=== PATIENT | female | born 1975 | race African-American/Black ===

== ENCOUNTER 2022-03-18 07:16 | Emergency (ER) | payer SELFPAY ==
[~2022-03-18] VITALS: Ht 162.6 cm; Wt 68.0 kg
[2022-03-18] MEDS ORDERED: SODIUM CHLORIDE 0.9% 1,000 ML IV ONE (07:30)
[2022-03-18 07:51] LABS: BASOPHILS % 0.5 % (0.0-2.0); EOSINOPHILS % 0.3 % (0.0-5.0); HEMATOCRIT. 38.8 % (36.0-48.0); LYMPHOCYTES % 35.3 % (20.0-50.0); MEAN CORPUSCULAR HEMOGLOBIN 31.5 pg (28.0-32.0); MEAN CORPUSCULAR VOLUME 93.8 fL (81.0-99.0); MEAN PLATELET VOLUME 8.1 fl (7.4-10.4); MONOCYTES % 7.6 % (2.0-8.0); NEUTROPHILS % 56.3 % (40.0-76.0); PLATELET 193 x1000/uL (130-400); RED BLOOD CELL COUNT 4.13 mill/uL (4.2-5.4); RED CELL DISTRIBUTION WIDTH 13.4 % (11.6-14.6)
[2022-03-18 07:59] LABS: CHLORIDE 100 mEq/L (98-107)
[2022-03-18 08:21] LABS: ETHANOL BLOOD < 10 mg/dL
[2022-03-18 10:06] LABS: CLARITY URINE CLEAR (CLEAR); COLOR URINE YELLOW (YELLOW); KETONES URINE NEGATIVE (NEGATIVE); LEUKOCYTE ESTERASE URINE NEGATIVE (NEGATIVE); NITRITE URINE NEGATIVE (NEGATIVE); OCCULT BLOOD URINE NEGATIVE (NEGATIVE); PROTEIN URINE NEGATIVE (NEGATIVE); SPECIFIC GRAVITY URINE 1.002 (1.005-1.030); UROBILINOGEN URINE 0.2 E.U./dL (0.2-1.0)
[2022-03-18 10:27] LABS: *AMPHETAMINES SCREEN URINE NEGATIVE (NEGATIVE); *BARBITURATES SCREEN URINE NEGATIVE (NEGATIVE); *BENZODIAZEPINES SCREEN URINE NEGATIVE (NEGATIVE); *COCAINE SCREEN URINE NEGATIVE (NEGATIVE); CANNABINOID URINE SCREEN NEGATIVE (NEGATIVE); METHADONE URINE SCREEN NEGATIVE (NEGATIVE); OPIATES URINE SCREEN NEGATIVE (NEGATIVE); PHENCYCLIDINE URINE SCREEN NEGATIVE (NEGATIVE)
[2022-03-18] MEDS ORDERED: CLON0.5T MT (12:04)
[2022-03-18] MEDS ORDERED: PARO-66 MT (12:04)
[2022-03-18 13:06] VITALS: BP 127/84
[2022-03-20] MEDS ORDERED: PARO-66 MT (12:13)
[2022-03-20] MEDS ORDERED: CLON0.5T MT (12:13)
== END 2022-03-18 13:11 | disposition home or self-care (01) ==
LOC: ER 07:16
DX: F41.0 Panic disorder [episodic paroxysmal anxiety] (principal); R51.9 Headache, unspecified
CPT/HCPCS: 36415; 70450; 71045; 80053; 80305; 80307; 80320; 80329; 81003; 82140; 83690; 83880; 84484; 85025; 86850; 86900; 86901; 96360; 96361; 99285; J7030; G0480

== ENCOUNTER 2022-07-28 04:22 | Emergency (ER) | payer OTHER ==
[~2022-07-28] VITALS: Ht 170.2 cm; Wt 87.4 kg
[~2022-07-28 04:22] MED LIST: CLON0.5T MT; PARO-66 MT
[2022-07-28 04:24] VITALS: BP 133/89
[2022-07-28 04:57] LABS: CLARITY URINE CLEAR (CLEAR); COLOR URINE YELLOW (YELLOW); KETONES URINE NEGATIVE (NEGATIVE); LEUKOCYTE ESTERASE URINE NEGATIVE (NEGATIVE); NITRITE URINE NEGATIVE (NEGATIVE); OCCULT BLOOD URINE 1+ (NEGATIVE); PH URINE 5.5 (4.5-8.0); PROTEIN URINE NEGATIVE (NEGATIVE); SPECIFIC GRAVITY URINE 1.004 (1.005-1.030); UROBILINOGEN URINE 0.2 E.U./dL (0.2-1.0)
== END 2022-07-28 07:35 | disposition home or self-care (01) ==
LOC: ER 04:22
DX: R35.89 Other polyuria (principal)
CPT/HCPCS: 81003; 81025; 99283

== ENCOUNTER 2022-09-15 03:45 | Emergency (ER) | payer OTHER ==
[~2022-09-15 03:45] MED LIST changes: +PARO-150 MT; -PARO-66 MT
== END 2022-09-15 04:55 | disposition left against medical advice (07) ==
LOC: ER 03:45
DX: R30.9 Painful micturition, unspecified (principal); Z53.21 Procedure and treatment not carried out due to patient leaving prior to being seen by health care provider
CPT/HCPCS: 99281